=== PATIENT | male | born 1975 | race Two or more races ===

== ENCOUNTER 2021-12-12 08:02 | Outpatient (CLI) | payer OTHER | END 2021-12-12 08:03 | disposition home or self-care (01) | LOC: TOM 08:02 | DX: I11.9 Hypertensive heart disease without heart failure (principal); I34.0 Nonrheumatic mitral (valve) insufficiency; R22.1 Localized swelling, mass and lump, neck; I87.2 Venous insufficiency (chronic) (peripheral); R20.2 Paresthesia of skin; E78.2 Mixed hyperlipidemia; E11.22 Type 2 diabetes mellitus with diabetic chronic kidney disease; N18.2 Chronic kidney disease, stage 2 (mild); E55.9 Vitamin D deficiency, unspecified; R06.02 Shortness of breath; R00.2 Palpitations; R07.2 Precordial pain; I70.213 Atherosclerosis of native arteries of extremities with intermittent claudication, bilateral legs; Z79.4 Long term (current) use of insulin ==

== ENCOUNTER 2022-09-17 21:14 | Emergency (ER) | payer OTHER ==
[~2022-09-17] VITALS: Ht 170.2 cm; Wt 89.4 kg
[2022-09-17] MEDS ORDERED: IRBESARTAN75 MG PO (21:25)
[2022-09-17] MEDS ORDERED: HUMALOG100 UNIT/2 SQ (21:25)
[2022-09-17] MEDS ORDERED: TOPROL XL50 M1 PO (21:25)
[2022-09-17] MEDS ORDERED: HYDRALAZINE HCL10 MG PO (21:26)
== END 2022-09-17 23:21 | disposition home or self-care (01) ==
LOC: ER 21:14
DX: R07.9 Chest pain, unspecified (principal)